=== PATIENT | male | born 1975 | race American Indian/Alaskan Native ===

== ENCOUNTER 2018-05-25 01:33 | Emergency (ER) | payer SELFPAY ==
[2018-05-25 02:34] LABS: BASO % 0.1 % (0.0-2.0); EOS # 0.1 K/uL (0.0-0.7); EOS % 0.5 % (0.0-4.0); LYMPH % 14.9 % (20.0-40.0); MEAN CELL VOLUME 89.8 fL (80.0-94.0); MEAN CORPUSCULAR HEMOGLOBIN 30.7 pg (27.0-31.0); MEAN CORPUSCULAR HGB CONC 34.1 g/dL (33.0-37.0); MONO # 0.7 K/uL (0.0-0.8); MONO % 5.2 % (0.0-10.0); NEUT # 10.8 K/uL (1.8-7.0); NEUT % 79.3 % (50.0-75.0); RBC 4.23 Mil/uL (4.40-5.90); RED CELL DISTRIBUTION WIDTH 14.1 % (11.5-14.5); WHITE BLOOD COUNT 13.6 K/uL (4.8-10.8)
[2018-05-25 02:40] LABS: ALB/GLOB RATIO 1.5 (1.0-2.1); ALBUMIN 4.2 g/dL (3.5-5.0); ALT/SGPT 27 U/L (21-72); AST/SGOT 39 U/L (17-59); BLOOD UREA NITROGEN 16 mg/dL (9-20); CALCIUM 9.1 mg/dl (8.6-10.4); GFR AFRICAN-AMERICAN > 60; GFR NON-AFRICAN AMERICAN 56
--- NOTE | 2018-05-25 03:41 | C.PDOC ---
History Of Present Illness 63 year old male patient brought to the ER due to bizarre public behavior. Time Seen by Provider: 05/25/18 01:50 Chief Complaint (Nursing): Substance Abuse History Per: Patient History/Exam Limitations: no limitations Onset/Duration Of Symptoms: Hrs Past Medical History Reviewed: Historical Data, Nursing Documentation, Vital Signs Vital Signs: Last Vital Signs Temp 98.7 F 05/25/18 06:21 Pulse 85 05/25/18 06:21 Resp 19 05/25/18 06:21 BP 128/78 05/25/18 06:21 Pulse Ox 97 05/25/18 06:21 Family History: States: No Known Family Hx - Social History Hx Alcohol Use: Yes Hx Substance Use: Yes Review Of Systems Except As Marked, All Systems Reviewed And Found Negative. Constitutional: Positive for: Other (bizarre public behavior) Physical Exam - Physical Exam Appears: Non-toxic, No Acute Distress, Other (large black male) Skin: Normal Color, Warm, Dry Head: Atraumatic Neurological/Psych: Other (unable to redirect and incoherent ) Gait: Steady ED Course And Treatment - Laboratory Results Result Diagrams: 05/25/18 02:25 05/25/18 02:25 Reevaluation Time: 07:00 (still sleeping heavily.) Reassessment Condition: Improved Medical Decision Making Medical Decision Making: Impression: Bizarre public behavior Plans: -- drug screen -- blood work -- Ativan -- Geodon injection -- UA 0700: substance abuse. Consider PCP needs to sleep of his sedation further signed over to AM MD arnold[facility] conn ED 8 Disposition - Disposition Disposition Time: 07:00 Condition: GOOD Forms: [facility] (Dominican) - Clinical Impression Clinical Impression: Substance abuse - Scribe Statement The provider has reviewed the documentation as recorded by the Scribe Heather Mcmanus Provider Attestation: All medical record entries made by the Scribe were at my direction and personally dictated by me. I have reviewed the chart and agree that the record accurately reflects my personal performance of the history, physical exam, medical decision making, and the department course for this patient. I have also personally directed, reviewed, and agree with the discharge instructions and disposition. Physician Patient Turnover Patient Signed Over To: Fidelina Irene Handoff Comments: dispo in AM when sober.
[2018-05-25 10:45] VITALS: RESP 18
[2018-05-25 13:40] VITALS: BP 144/92; PULSE 80; TEMP 98.5; O2SAT 97
== END 2018-05-25 14:09 | disposition home or self-care (01) ==
LOC: C.ER 01:33 → EDBD 01:33 → C.ER 14:09
DX: F19.10 Other psychoactive substance abuse, uncomplicated (principal)
CPT/HCPCS: 80053; 82948; 85025; 96372; 99284; G0480; J2060; J3486